=== PATIENT | female | born 2005 | race Hispanic/Latino ===

== ENCOUNTER 2025-09-09 15:45 | Outpatient (CLI) | payer OTHER | END 2025-09-09 15:46 | disposition home or self-care (01) | LOC: CSHDTY/OP 15:45 | PROVIDERS: ATTEND Nurse Practitioner Family | DX: Z71.3 Dietary counseling and surveillance (principal) | CPT/HCPCS: 97802 ==

== ENCOUNTER 2025-10-12 12:52 | Outpatient (CLI) | payer OTHER | END 2025-10-12 12:53 | disposition home or self-care (01) | LOC: CSHDTY/OP 12:52 | PROVIDERS: ATTEND Nurse Practitioner Family | DX: Z71.3 Dietary counseling and surveillance (principal) | CPT/HCPCS: 97802 ==